=== PATIENT | female | born 1995 | race Caucasian/White ===

== ENCOUNTER 2017-09-16 20:01 | Emergency (ER) | payer SELFPAY ==
[2017-09-16] MEDS ORDERED: TYLENOL PO ONE (20:53)
[2017-09-16 21:52] LABS: HCG Qualitative,Urine Negative (Negative)
--- NOTE | 2017-09-16 22:53 | Cat Scan Report ---
FINAL REPORT PROCEDURE: CT HEAD/BRAIN WO CON TECHNIQUE: Computerized tomography of the head was performed without contrast material. HISTORY: headache COMPARISON: No prior studies are available for comparison. FINDINGS: Skull and scalp: Normal. Paranasal sinuses: Normal. Ventricles and subarachnoid spaces: Normal. Cerebrum: No evidence of hemorrhage, acute infarction or mass . Cerebellum and brainstem: No evidence of hemorrhage, acute infarction or mass. Vasculature: Normal. Comments: None. IMPRESSION: Normal Examination
--- NOTE | 2017-09-16 23:18 | Cat Scan Report ---
FINAL REPORT EXAM: CT CERVICAL SPINE WO CON HISTORY: Headache TECHNIQUE: CT evaluation was performed of the cervical spine without the use of intravenous contrast administration. Coronal and sagittal imaging also provided for interpretation. PRIORS: None. FINDINGS: There is mild reversal of the usual cervical lordosis. The osseous mineralization is normal. There is no acute fracture, dislocation or subluxation. No significant degenerative arthropathy. Atlanto dens interval is preserved. The prevertebral soft tissues are intact. Incidental right apical granuloma. Heterogeneous appearance of the thyroid gland without discrete nodule. IMPRESSION: No evidence of acute fracture, subluxation or significant degenerative change of the cervical spine.
[2017-09-17] MEDS ORDERED: TORADOL IM ONE (01:43)
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
[2017-09-17 02:52] VITALS: BP 112/63
== END 2017-09-17 02:41 | disposition home or self-care (01) ==
LOC: ED 20:01
DX: F17.200 Nicotine dependence, unspecified, uncomplicated (principal); V48.5XXA Car driver injured in noncollision transport accident in traffic accident, initial encounter; Y93.89 Activity, other specified; Y92.89 Other specified places as the place of occurrence of the external cause; Y99.8 Other external cause status
CPT/HCPCS: 70450; 72125; 81025; 96372; 99284; J1885